=== PATIENT | female | born 1935 | race Two or more races ===

== ENCOUNTER 2018-01-31 07:51 | Inpatient (IN) | payer OTHER ==
[~2018-01-31] VITALS: Ht 152.4 cm; Wt 87.1 kg
[2018-01-31 07:54] VITALS: Ht 152.4 cm; Wt 87.1 kg
[2018-01-31] MEDS ORDERED: METOPROLOL TART50 MG PO (08:04)
[2018-01-31] MEDS ORDERED: COZAAR50 M1 PO (08:04)
[2018-01-31] MEDS ORDERED: CARTIA XT120 MG PO (08:05)
[2018-01-31] MEDS ORDERED: DICLOFENAC SODI75 MG PO (08:05)
[2018-01-31] MEDS ORDERED: LIPITOR40 MG PO (08:05)
[2018-01-31] MEDS ORDERED: LYRICA75 M1 PO (08:06)
[2018-01-31] MEDS ORDERED: SOM350 PO (08:06)
[2018-01-31] MEDS ORDERED: PAROXETINE40 M1 PO (08:06)
[2018-01-31] MEDS ORDERED: PANTOPRAZOLE SO40 M1 PO (08:06)
[2018-01-31 08:28] LABS: BASOPHIL % 0.6 % (0-2); PLATELET COUNT 174 x10^3mcL (130-400)
[2018-01-31 08:31] LABS: CALCIUM 8.5 mg/dL (8.5-10.1); CARBON DIOXIDE 25.5 mmol/L (21-32); CHLORIDE SERUM 104 mmol/L (98-107); CREATININE SERUM 1.3 mg/dL (0.6-1.0); GLUCOSE SERUM 97 mg/dL (74-106); POTASSIUM SERUM 4.8 mmol/L (3.5-5.1); SODIUM SERUM 138 mmol/L (136-145)
[2018-01-31 08:37] LABS: RED CELL DISTRIBUTION WIDTH 16.3 % (11.5-14.5)
[2018-01-31 08:45] LABS: ALKALINE PHOSPHATASE 80 U/L (46-116); ALT/SGPT 20 U/L (14-59); AST/SGOT 18 U/L (15-37); BILIRUBIN TOTAL 0.22 mg/dL (0.20-1.00); TOTAL PROTEIN, SERUM 7.5 g/dL (6.4-8.2)
[2018-01-31 08:47] LABS: ALBUMIN 3.1 g/dL (3.4-5.0)
[2018-01-31 10:57] LABS: CHOLESTEROL/HDL RATIO 3.4; MAGNESIUM 2.2 mg/dL (1.8-2.4); PHOSPHOROUS 5.6 mg/dL (2.5-4.9)
[2018-01-31 11:00] LABS: T3 TOTAL 0.64 ng/mL
[2018-01-31 11:09] LABS: FREE T4 0.9 ng/dL (0.76-1.46); FREE THYROXINE INDEX 2.3 ug/dL (1.4-4.5); T4(THYROXINE) 6.6 ug/dL (4.7-13.3)
[2018-01-31 11:28] VITALS: BP 151/76
[2018-01-31 12:43] VITALS: BP 151/85
[2018-01-31 13:15] VITALS: BP 151/76
[2018-01-31 13:30] LABS: microscopic required? NO
[2018-01-31 13:42] LABS: urine erythrocyte NEGATIVE (NEGATIVE)
[2018-01-31 16:59] VITALS: BP 129/61
[2018-01-31 21:11] VITALS: BP 147/72
[2018-02-01 05:11] VITALS: BP 139/67
[2018-02-01 06:19] LABS: PLATELET COUNT 174 x10^3mcL (130-400)
[2018-02-01 06:39] LABS: BASOPHIL % 0 % (0-2); CALCIUM 8.6 mg/dL (8.5-10.1); CHLORIDE SERUM 104 mmol/L (98-107); CREATININE SERUM 1.2 mg/dL (0.6-1.0); GLUCOSE SERUM 138 mg/dL (74-106); MAGNESIUM 2.2 mg/dL (1.8-2.4); POTASSIUM SERUM 4.5 mmol/L (3.5-5.1); RED CELL DISTRIBUTION WIDTH 15.7 % (11.5-14.5); SODIUM SERUM 138 mmol/L (136-145)
[2018-02-01 07:44] VITALS: BP 128/72
[2018-02-01 08:12] VITALS: BP 143/67
[2018-02-01 14:17] VITALS: BP 145/70
[2018-02-01 17:16] VITALS: BP 136/69
[2018-02-01 21:01] VITALS: BP 139/61
[2018-02-02 05:35] VITALS: BP 139/71
[2018-02-02 06:40] LABS: BASOPHIL % 0.3 % (0-2); PLATELET COUNT 160 x10^3mcL (130-400)
[2018-02-02 06:49] LABS: RED CELL DISTRIBUTION WIDTH 15.9 % (11.5-14.5)
[2018-02-02 07:18] LABS: CALCIUM 8.5 mg/dL (8.5-10.1); CARBON DIOXIDE 24.1 mmol/L (21-32); CHLORIDE SERUM 107 mmol/L (98-107); CREATININE SERUM 1.3 mg/dL (0.6-1.0); GLUCOSE SERUM 93 mg/dL (74-106); POTASSIUM SERUM 4.3 mmol/L (3.5-5.1); SODIUM SERUM 140 mmol/L (136-145)
[2018-02-02 08:40] VITALS: BP 141/72
[2018-02-02 13:15] VITALS: BP 136/85
[2018-02-02 16:20] VITALS: BP 131/60
[2018-02-02] MEDS ORDERED: NATURAL E400 IU PO (19:39)
[2018-02-02 20:44] VITALS: BP 128/60
[2018-02-03 05:36] VITALS: BP 166/88
[2018-02-03 06:12] LABS: CARBON DIOXIDE 24.7 mmol/L (21-32); CHLORIDE SERUM 105 mmol/L (98-107); CREATININE SERUM 1.2 mg/dL (0.6-1.0); GLUCOSE SERUM 102 mg/dL (74-106); POTASSIUM SERUM 4.2 mmol/L (3.5-5.1); SODIUM SERUM 140 mmol/L (136-145)
[2018-02-03 06:15] LABS: BASOPHIL % 0.4 % (0-2); PLATELET COUNT 174 x10^3mcL (130-400)
[2018-02-03 09:10] VITALS: BP 154/69
[2018-02-03 12:43] VITALS: BP 156/77
[2018-02-03 14:56] VITALS: BP 156/77
[2018-02-03 17:29] VITALS: BP 136/59
[2018-02-03 20:24] VITALS: BP 147/69
[2018-02-04 05:11] VITALS: BP 146/75
[2018-02-04 06:28] LABS: PLATELET COUNT 170 x10^3mcL (130-400)
[2018-02-04 06:30] LABS: BASOPHIL % 0 % (0-2); RED CELL DISTRIBUTION WIDTH 16.1 % (11.5-14.5)
[2018-02-04 06:40] LABS: CALCIUM 8.7 mg/dL (8.5-10.1); CARBON DIOXIDE 24.2 mmol/L (21-32); CHLORIDE SERUM 104 mmol/L (98-107); CREATININE SERUM 1.1 mg/dL (0.6-1.0); GLUCOSE SERUM 190 mg/dL (74-106); POTASSIUM SERUM 3.9 mmol/L (3.5-5.1); SODIUM SERUM 137 mmol/L (136-145)
[2018-02-04 08:38] VITALS: BP 129/94
[2018-02-04 12:21] VITALS: BP 144/68
[2018-02-04] MEDS ORDERED: PROVENTIL0.09 MG/A1 INH (12:39)
[2018-02-04] MEDS ORDERED: LEVAQUIN750 MG PO (12:51)
[2018-02-04] MEDS ORDERED: CLINDAMYCIN HC300 MG PO (12:51)
[2018-02-04] MEDS ORDERED: LAC PO (12:54)
[2018-02-04] MEDS ORDERED: SIMETHICONE80 MG CH (12:59)
[2018-02-04] MEDS ORDERED: COL100 PO (13:01)
[2018-02-04] MEDS ORDERED: PRI20 PO (13:02)
[2018-02-04 16:10] VITALS: BP 144/68
[2018-02-04 16:15] VITALS: BP 103/45
[2018-02-04] MEDS ORDERED: OXYBUTYNIN CHLOR5 M2 PO (18:15)
== END 2018-02-04 18:20 | disposition home or self-care (01) | DRG 177 ==
LOC: ED 07:51 → DU 09:56
PROVIDERS: Emergency Medicine; Family Medicine
DX: J69.0 Pneumonitis due to inhalation of food and vomit (principal); J96.01 Acute respiratory failure with hypoxia; N17.0 Acute kidney failure with tubular necrosis; I50.43 Acute on chronic combined systolic (congestive) and diastolic (congestive) heart failure; E44.0 Moderate protein-calorie malnutrition; E78.00 Pure hypercholesterolemia, unspecified; E11.9 Type 2 diabetes mellitus without complications; F32.9 Major depressive disorder, single episode, unspecified; Z96.653 Presence of artificial knee joint, bilateral; K21.9 Gastro-esophageal reflux disease without esophagitis; E66.9 Obesity, unspecified; I11.9 Hypertensive heart disease without heart failure; Z68.30 Body mass index [BMI] 30.0-30.9, adult; I11.0 Hypertensive heart disease with heart failure; I08.1 Rheumatic disorders of both mitral and tricuspid valves; E83.39 Other disorders of phosphorus metabolism
CPT/HCPCS: 36600; 82962; 83880; 84439; 87804; 90732; 97110-GP; 97116-GP; 97530-GP; J1956; J2920; J2930; J3490; J7030; J7620; Q0092

== ENCOUNTER 2018-04-28 05:51 | Emergency (ER) | payer OTHER ==
[~2018-04-28] VITALS: Ht 157.5 cm; Wt 85.7 kg
[~2018-04-28 05:51] MED LIST: CARTIA XT120 MG PO; CLINDAMYCIN HC300 MG PO; COL100 PO; COZAAR50 M1 PO; DICLOFENAC SODI75 MG PO; LAC PO; LEVAQUIN750 MG PO; LIPITOR40 MG PO; LYRICA75 M1 PO; METOPROLOL TART50 MG PO; NATURAL E400 IU PO; OXYBUTYNIN CHLOR5 M2 PO; PANTOPRAZOLE SO40 M1 PO; PAROXETINE40 M1 PO; PRI20 PO; PROVENTIL0.09 MG/A1 INH; SIMETHICONE80 MG CH; SOM350 PO
[2018-04-28 06:02] VITALS: Ht 157.5 cm; Wt 85.7 kg
[2018-04-28] MEDS ORDERED: METOPROLOL SUCC50 M2 (06:26)
[2018-04-28] MEDS ORDERED: MONTELUKAST SOD10 M1 (06:27)
[2018-04-28] MEDS ORDERED: VENTOLIN H0.09 MG/A1 (06:28)
[2018-04-28 07:02] LABS: BASOPHIL % 0.4 % (0-2); PLATELET COUNT 148 x10^3mcL (130-400)
[2018-04-28 07:12] LABS: CARBON DIOXIDE 27.7 mmol/L (21-32); CHLORIDE SERUM 106 mmol/L (98-107); CREATININE SERUM 1.2 mg/dL (0.6-1.0); GLUCOSE SERUM 112 mg/dL (74-106); POTASSIUM SERUM 4.8 mmol/L (3.5-5.1); SODIUM SERUM 142 mmol/L (136-145)
[2018-04-28 07:16] LABS: ALKALINE PHOSPHATASE 94 U/L (46-116); ALT/SGPT 14 U/L (14-59); AST/SGOT 10 U/L (15-37); BILIRUBIN TOTAL 0.19 mg/dL (0.20-1.00); TOTAL PROTEIN, SERUM 7.2 g/dL (6.4-8.2)
[2018-04-28 07:18] LABS: ALBUMIN 3.2 g/dL (3.4-5.0)
[2018-04-28 08:36] LABS: microscopic required? YES; urine erythrocyte NEGATIVE (NEGATIVE)
[2018-04-28 09:00] VITALS: BP 136/65
== END 2018-04-28 09:00 | disposition home or self-care (01) ==
LOC: ED 05:51
PROVIDERS: Emergency Medicine
DX: N39.0 Urinary tract infection, site not specified (principal); R06.02 Shortness of breath; I10 Essential (primary) hypertension
CPT/HCPCS: 36415; 83880; J7512; J7613; J7644; Q0092

== ENCOUNTER 2018-08-14 08:26 | Inpatient (IN) | payer OTHER ==
[~2018-08-14] VITALS: Ht 154.9 cm; Wt 83.2 kg
[~2018-08-14 08:26] MED LIST changes: +METOPROLOL SUCC50 M2; +MONTELUKAST SOD10 M1 PO; +VENTOLIN H0.09 MG/A1
[2018-08-14 08:31] VITALS: Ht 154.9 cm; Wt 83.2 kg
[2018-08-14 09:03] LABS: microscopic required? NO
[2018-08-14 09:09] LABS: BASOPHIL % 0.6 % (0-2); PLATELET COUNT 188 x10^3mcL (130-400)
[2018-08-14 09:12] LABS: RED CELL DISTRIBUTION WIDTH 15.5 % (11.5-14.5)
[2018-08-14 09:12] LABS: urine erythrocyte NEGATIVE (NEGATIVE)
[2018-08-14 09:25] LABS: CALCIUM 9.4 mg/dL (8.5-10.1); CARBON DIOXIDE 23.6 mmol/L (21-32); CHLORIDE SERUM 105 mmol/L (98-107); CREATININE SERUM 1.6 mg/dL (0.6-1.0); GLUCOSE SERUM 95 mg/dL (74-106); POTASSIUM SERUM 4.5 mmol/L (3.5-5.1); SODIUM SERUM 136 mmol/L (136-145)
[2018-08-14 09:30] LABS: ALBUMIN 3.6 g/dL (3.4-5.0); ALKALINE PHOSPHATASE 87 U/L (46-116); AST/SGOT 14 U/L (15-37); BILIRUBIN TOTAL 0.27 mg/dL (0.20-1.00)
[2018-08-14 09:35] LABS: TOTAL PROTEIN, SERUM 8.6 g/dL (6.4-8.2)
[2018-08-14 09:47] LABS: ALT/SGPT 16 U/L (14-59)
[2018-08-14] MEDS ORDERED: NORCO1 TA2 PO (10:15)
[2018-08-14] MEDS ORDERED: DILTIAZEM HCL120 M2 PO (10:19)
[2018-08-14] MEDS ORDERED: LYRICA75 M1 PO (10:24)
[2018-08-14] MEDS ORDERED: MIRALAX17 GM/Dose PO (10:26)
[2018-08-14 10:53] LABS: CHOLESTEROL/HDL RATIO 4.6; MAGNESIUM 2.4 mg/dL (1.8-2.4); PHOSPHOROUS 4.4 mg/dL (2.5-4.9)
[2018-08-14 10:58] LABS: T3 TOTAL 1.02 ng/mL
[2018-08-14 11:01] LABS: FREE T4 1.06 ng/dL (0.76-1.46); FREE THYROXINE INDEX 3.1 ug/dL (1.4-4.5); T4(THYROXINE) 9.5 ug/dL (4.7-13.3)
[2018-08-14] MEDS ORDERED: METOPROLOL TART50 MG PO (11:57)
[2018-08-14 11:58] VITALS: BP 161/77
[2018-08-14 14:55] LABS: AMPHETAMINE QUAL UR NONE DETECTED (See below)
[2018-08-14 17:27] VITALS: BP 143/72
[2018-08-14 21:00] VITALS: BP 160/68
[2018-08-15] VITALS (7 sets, daily range): BP systolic 147–184; BP diastolic 71–102
[2018-08-15 06:59] LABS: CALCIUM 9.5 mg/dL (8.5-10.1); CARBON DIOXIDE 24.2 mmol/L (21-32); CHLORIDE SERUM 108 mmol/L (98-107); CREATININE SERUM 1.2 mg/dL (0.6-1.0); GLUCOSE SERUM 92 mg/dL (74-106); MAGNESIUM 2.4 mg/dL (1.8-2.4); PHOSPHOROUS 3.8 mg/dL (2.5-4.9); POTASSIUM SERUM 4.3 mmol/L (3.5-5.1); SODIUM SERUM 142 mmol/L (136-145)
[2018-08-15 07:15] LABS: BASOPHIL % 0.4 % (0-2); PLATELET COUNT 163 x10^3mcL (130-400)
[2018-08-15 07:19] LABS: RED CELL DISTRIBUTION WIDTH 15.4 % (11.5-14.5)
[2018-08-16 05:01] VITALS: BP 138/75
[2018-08-16 06:07] LABS: BASOPHIL % 0.3 % (0-2); PLATELET COUNT 178 x10^3mcL (130-400)
[2018-08-16 06:16] LABS: RED CELL DISTRIBUTION WIDTH 16.2 % (11.5-14.5)
[2018-08-16 06:32] LABS: CALCIUM 9.5 mg/dL (8.5-10.1); CARBON DIOXIDE 25.4 mmol/L (21-32); CHLORIDE SERUM 107 mmol/L (98-107); CREATININE SERUM 1.2 mg/dL (0.6-1.0); GLUCOSE SERUM 102 mg/dL (74-106); MAGNESIUM 2.1 mg/dL (1.8-2.4); PHOSPHOROUS 3.7 mg/dL (2.5-4.9); POTASSIUM SERUM 3.6 mmol/L (3.5-5.1); SODIUM SERUM 143 mmol/L (136-145)
[2018-08-16 13:29] VITALS: BP 176/81
[2018-08-16 17:07] VITALS: BP 174/74
[2018-08-16 18:55] VITALS: BP 153/101
[2018-08-16 21:27] VITALS: BP 155/70
[2018-08-17 05:55] VITALS: BP 154/89
[2018-08-17 06:42] LABS: BASOPHIL % 0.5 % (0-2); CALCIUM 9.3 mg/dL (8.5-10.1); CARBON DIOXIDE 21.4 mmol/L (21-32); CHLORIDE SERUM 107 mmol/L (98-107); CREATININE SERUM 1.5 mg/dL (0.6-1.0); GLUCOSE SERUM 93 mg/dL (74-106); MAGNESIUM 2.1 mg/dL (1.8-2.4); PHOSPHOROUS 4.7 mg/dL (2.5-4.9); PLATELET COUNT 171 x10^3mcL (130-400); POTASSIUM SERUM 3.9 mmol/L (3.5-5.1); SODIUM SERUM 141 mmol/L (136-145)
[2018-08-17 06:58] LABS: RED CELL DISTRIBUTION WIDTH 16.2 % (11.5-14.5)
[2018-08-17 09:45] VITALS: BP 145/66
[2018-08-17 13:47] VITALS: BP 126/62
[2018-08-17] MEDS ORDERED: NIFEDIPINE60 MG PO (15:09)
[2018-08-17] MEDS ORDERED: HYD25 PO (15:10)
[2018-08-17] MEDS ORDERED: PROVENTIL0.09 MG/A1 INH (15:29)
[2018-08-17 16:04] VITALS: BP 126/62
== END 2018-08-17 18:21 | disposition home or self-care (01) | DRG 682 ==
LOC: ED 08:26 → DU 09:47
PROVIDERS: Emergency Medicine; Family Medicine; Internal Medicine; Internal Medicine Gastroenterology
PROC: 0DB68ZX Excision of Stomach, Via Natural or Artificial Opening Endoscopic, Diagnostic (ICD-10-PCS; principal; 2018-08-16 07:30)
PROC: 0DBG8ZX Excision of Left Large Intestine, Via Natural or Artificial Opening Endoscopic, Diagnostic (ICD-10-PCS; 2018-08-16 07:30)
PROC: 0DBL8ZZ Excision of Transverse Colon, Via Natural or Artificial Opening Endoscopic (ICD-10-PCS; 2018-08-16 07:30)
DX: I12.9 Hypertensive chronic kidney disease with stage 1 through stage 4 chronic kidney disease, or unspecified chronic kidney disease (principal); N17.0 Acute kidney failure with tubular necrosis; E86.0 Dehydration; K59.00 Constipation, unspecified; N18.3 Chronic kidney disease, stage 3 (moderate); E11.22 Type 2 diabetes mellitus with diabetic chronic kidney disease; E11.65 Type 2 diabetes mellitus with hyperglycemia; R00.1 Bradycardia, unspecified; R06.01 Orthopnea; J98.01 Acute bronchospasm; I16.0 Hypertensive urgency; K29.70 Gastritis, unspecified, without bleeding; K63.5 Polyp of colon; K64.8 Other hemorrhoids; I44.0 Atrioventricular block, first degree; M19.90 Unspecified osteoarthritis, unspecified site; E78.5 Hyperlipidemia, unspecified; E66.9 Obesity, unspecified; Z68.34 Body mass index [BMI] 34.0-34.9, adult; Z90.710 Acquired absence of both cervix and uterus; Z82.49 Family history of ischemic heart disease and other diseases of the circulatory system; Z85.3 Personal history of malignant neoplasm of breast
CPT/HCPCS: 43235; 45378; 82962; 83880; 84439; 97110-GP; 97530-GP; J1200; J1610; J1644; J1885; J1940; J2250; J2310; J3010; J3490; J7030; J7620; J7626; Q0092

== ENCOUNTER 2019-04-28 10:46 | Emergency (ER) | payer OTHER ==
[~2019-04-28] VITALS: Ht 157.5 cm; Wt 77.1 kg
[~2019-04-28 10:46] MED LIST changes: +DILTIAZEM HCL120 M2 PO; +HYD25 PO; +MIRALAX17 GM/Dose PO; +NIFEDIPINE60 MG PO; +NORCO1 TA2 PO
[2019-04-28 11:16] VITALS: Ht 157.5 cm; Wt 77.1 kg
[2019-04-28 12:00] LABS: BASOPHIL % 0.8 % (0-2); PLATELET COUNT 172 x10^3mcL (130-400)
[2019-04-28 12:03] LABS: RED CELL DISTRIBUTION WIDTH 16.5 % (11.5-14.5)
[2019-04-28 12:18] LABS: CALCIUM 9.3 mg/dL (8.5-10.1); CARBON DIOXIDE 34.4 mmol/L (21-32); CHLORIDE SERUM 103 mmol/L (98-107); CREATININE SERUM 1.4 mg/dL (0.6-1.0); GLUCOSE SERUM 119 mg/dL (74-106); SODIUM SERUM 141 mmol/L (136-145)
[2019-04-28 12:23] LABS: ALBUMIN 3.4 g/dL (3.4-5.0); ALKALINE PHOSPHATASE 86 U/L (46-116); ALT/SGPT 22 U/L (14-59); AST/SGOT 9 U/L (15-37); BILIRUBIN TOTAL 0.2 mg/dL (0.20-1.00); TOTAL PROTEIN, SERUM 7.7 g/dL (6.4-8.2)
[2019-04-28 16:50] VITALS: BP 133/85
== END 2019-04-28 16:50 | disposition home or self-care (01) ==
LOC: ED 10:46
PROVIDERS: Emergency Medicine
DX: I10 Essential (primary) hypertension (principal); E78.00 Pure hypercholesterolemia, unspecified
CPT/HCPCS: 36415; 83880; 85378; Q9967

== ENCOUNTER 2019-04-30 21:46 | Emergency (ER) | payer OTHER ==
[~2019-04-30] VITALS: Ht 167.6 cm; Wt 84.4 kg
[2019-04-30 22:12] VITALS: Ht 167.6 cm; Wt 84.4 kg
[2019-04-30 23:46] VITALS: BP 172/77
== END 2019-04-30 23:46 | disposition home or self-care (01) ==
LOC: ED 21:46
DX: L50.9 Urticaria, unspecified (principal); I10 Essential (primary) hypertension; E78.00 Pure hypercholesterolemia, unspecified
CPT/HCPCS: J1200; J2930; J3490; J7512

== ENCOUNTER 2020-11-24 13:42 | Emergency (ER) | payer OTHER, SELFPAY ==
[~2020-11-24] VITALS: Ht 154.9 cm; Wt 77.1 kg
[2020-11-24 13:43] VITALS: Ht 154.9 cm; Wt 77.1 kg
[2020-11-24 20:48] VITALS: BP 119/66
== END 2020-11-24 20:48 | disposition home or self-care (01) ==
LOC: ED 13:42
DX: U07.1 COVID-19 (principal); I10 Essential (primary) hypertension; E78.00 Pure hypercholesterolemia, unspecified
CPT/HCPCS: U0003